=== PATIENT | male | born 1965 | race Caucasian/White ===

== ENCOUNTER 2023-10-28 19:15 | Emergency (ER) | payer BC, SELFPAY ==
[2023-10-28 19:17] VITALS: BP 194/105
[2023-10-28 21:00] VITALS: BP 151/85
--- NOTE | 2023-10-28 21:07 | ED.GENMED ---
History of Present Illness
General
Chief Complaint: Blood Pressure Problem
Source: patient and spouse
Exam Limitations: none
Time Seen by Provider: 10/28/23 20:44
Travel History
Have you had any contact with someone who has COVID-19?: No
Do you have any symptoms of coronavirus? Fever > 100 degrees, chills, cough, shortness of breath, sore throat, loss of taste or smell, muscle aches, or headache?: No
History of Present Illness
History of Present Illness:
58-year-old male has noted flushing to his face for months. However the last week plus he has seemed worse at times feels off vaguely. Has been checking his blood pressure over the last week and has been in the 150s over 90s elevating up to the
184/104 this evening. Some vague minimal chest tightness earlier. No shearing pain no back pain no arm pain. No shortness of breath or pleuritic pain. Patient question whether he had a carcinoid syndrome
Past History
Past History
ED Past Medical History: None
ED Past Surgical History: Appendectomy and Orthopedic
Social History
Tobacco: Non-smoker
Alcohol: Occasional
Personal:
Living: with family
Employment: Employed
Family History
Family History: CAD
Review of Systems
Review of Systems
All Other Systems: Not applicable
Constitutional: Denies fever or weight loss
Respiratory: Reports no symptoms
Cardiac: Denies syncope
ABD/GI: Reports no symptoms
Phy Exam
Physical Exam
Physical Exam:
GENERAL: Alert and oriented in no apparent distress. Blood pressure 151/85 in the left arm. 156/85 in the right arm.
EYE: Orbits normal.
NECK: Supple, no thyroid palpable
ENT: Pharynx without erythema
CARDIAC: Regular rate and rhythm without any obvious murmurs.
LUNGS: Clear breath sounds,normal
ABDOMEN: Soft, without focal tenderness or distention
NEUROLOGICAL: Alert and oriented , grossly non-focal
SKIN: Warm and dry, no rash or lesion, no discoloration, skin intact.
MUSCULOSKELETAL: No edema,no deformity.Good color
PSYCH: Normal and appropriate interaction.
Course
Orders/Labs/Results
Orders:
Orders
10/28/23 19:21
EKG [Electrocardiogram (*1)] Urgent
Reason for Study: Chest Pain
EKG- Treatment ONCE
10/28/23 20:43
IV Insert/Care/Rem.- Treatment PRN
Pulse Ox/cont/shift [RESP] Stat
Quantity: 1
10/28/23 20:44
Cardiac Monitoring- Treatment ONCE
10/28/23 20:54
CXR2 [CR Chest - 2 Views ] Urgent
Comment:
Reason For Exam: cp/htn
10/28/23 21:05
Basic Metabolic Panel Urgent
Complete Blood Count/With Diff Urgent
D-Dimer Urgent
TSH Reflex To Free T4 Urgent
Troponin I Urgent
10/28/23 22:22
Urinalysis Reflex To Culture Urgent
Abnormal Lab Results
10/28/23
21:05
RBC 4.56 L 10^6/uL
(4.70-6.10)
Abs Immat Gran (auto) 0.1 H 10^3/uL
(0-0.05)
Absolute Monos (auto) 1.2 H 10^3/uL
(0.1-0.6)
Immature Gran % 0.8 H %
(0-0.5)
Lymphocytes % 19.6 L %
(20.5-51.1)
Monocytes % 13.6 H %
(1.7-9.3)
BUN 22 H mg/dl
(9-20)
Glucose 114 H mg/dl
(70-99)
10/28/23 21:05
10/28/23 21:05
Vital Signs
Initial and Last Documented VS:
Initial Vital Signs
Temp Pulse Resp BP Pulse Ox
98.3 F 86 18 194/105 98
10/28/23 19:17 10/28/23 19:17 10/28/23 19:17 10/28/23 19:17 10/28/23 19:17
Last Documented Vital Signs
Temp Pulse Resp BP Pulse Ox
98.3 F 75 20 136/80 96
10/28/23 19:17 10/28/23 22:15 10/28/23 22:15 10/28/23 22:00 10/28/23 22:15
*Critical Care Note
Total Time (30-74mins, 75-104mins- exclusive of procedures): Not Applicable
Update Note
Update Note:
Patient has remained medically stable and nontoxic. Not describing angina. Symptoms are mainly facial flushing and intermittent blood pressure elevations. However here her blood pressures have been very stable last 1 136/80. Equal in both arms.
No shearing chest pain no upper back pain no shortness of breath currently appears asymptomatic and nontoxic. No indication for for starting blood pressure management currently. Will follow-up with his primary physician
ED Attending Note
-
Portions of this chart may have been created with voice recognition software.� Occasional wrong word or��sound alike� substitutions may have occurred due to the inherent limitations of voice recognition software.
Discharge Plan
Departure
Patient Disposition: Home (Routine Discharge)
Date of Disposition: 10/28/23
Time of Disposition: 22:23
Patient with high blood pressure during this ER visit?: Yes
Discharge Problem:
Elevated blood pressure, Facial flushing, Brief chest pain
Instructions: High Blood Pressure (DC), Chest Pain PCP Follow Up, BLOOD PRESSURE
Referrals:
Bhavesh Weinberg MD [Family Provider] -
Interventions
Interventions:
*Risk Screen - Suicide Last Done: 10/28/23 19:17
*General Assessment Last Done: 10/28/23 19:17
*Neglect/Abuse Screening Last Done: 10/28/23 19:17
ED- Cardiac Assessment Last Done: 10/28/23 21:08
ED- Neurological Assessment Last Done: 10/28/23 21:08
ED- Pulmonary Assessment Last Done: 10/28/23 21:08
[2023-10-28 21:17] LABS: % Basophils 0.7 % (0-2); % Eosinophils 3.1 % (0-6); % Immature Granulocytes 0.8 % (0-0.5); % Lymphocytes 19.6 % (20.5-51.1); % Monocytes 13.6 % (1.7-9.3); % Neutrophils 62.2 % (42.2-75.2); Absolute Basophils 0.1 10^3/uL (0-0.2); Absolute Eosinophils 0.3 10^3/uL (0-0.7); Absolute Immature Granulocytes 0.1 10^3/uL (0-0.05); Absolute Lymphocytes 1.8 10^3/uL (1.2-3.4); Absolute Monocytes 1.2 10^3/uL (0.1-0.6); Absolute Neutrophils 5.6 10^3/uL (1.4-6.5); Hematocrit 39.1 % (39.0-52.0); Hemoglobin 13.8 g/dL (13.0-18.0); Mean Corp Hgb Conc. 35.3 g/dL (33.0-37.0); Mean Corpuscular Hgb 30.3 pg (27.0-31.0); Mean Corpuscular Volume 85.7 fL (80.0-94.0); Mean Platelet Volume 9.4 fL (7.4-10.4); Nucleated Red Blood Cells % 0 % (-); Platelet Count 259 10^3/uL (130-400); Red Blood Cell Count 4.56 10^6/uL (4.70-6.10); White Blood Cell Count 8.9 10^3/uL (4.8-10.8)
[2023-10-28 21:25] LABS: D-Dimer 0.36 ug/mlFEU (0.00-0.50)
[2023-10-28 21:26] LABS: Blood Urea Nitrogen 22 mg/dl (9-20); Calcium 9.2 mg/dl (8.4-10.2); Carbon Dioxide 23 mmol/L (22-30); Chloride 102 mmol/L (98-107); Glucose 114 mg/dl (70-99); Potassium 3.8 mmol/L (3.5-5.1); Sodium 135 mmol/L (135-145); eGFR > 60.00
[2023-10-28 21:38] LABS: Troponin I < 0.012 ng/ml
[2023-10-28 21:52] VITALS: BP 139/82
[2023-10-28 21:57] LABS: TSH Reflex To Free T4 4.06 uIU/ml (0.47-4.68)
[2023-10-28 22:00] VITALS: BP 136/80
[2023-10-28 22:09] VITALS: BMI 25.9
[2023-10-28 22:41] LABS: Urine Albumin Negative (Neg - Trace); Urine Bilirubin Negative (Negative); Urine Character Clear (Clear); Urine Color Yellow; Urine Glucose Negative (Negative); Urine Ketone Negative (Negative); Urine Leukocyte Negative (Negative); Urine Nitrite Negative (Negative); Urine Occult Blood Negative (Negative); Urine Specific Gravity 1.015 (<1.030); Urine Urobilinogen Negative (Neg - 1+)
== END 2023-10-28 22:46 | disposition home or self-care (01) ==
LOC: EMR 19:15
PROVIDERS: EMERGENCY PHYSICIAN Emergency Medicine; FAMILY PHYSICIAN Internal Medicine
DX: R07.9 Chest pain, unspecified (principal); R07.89 Other chest pain; R23.2 Flushing; R03.0 Elevated blood-pressure reading, without diagnosis of hypertension
CPT/HCPCS: 99285; 71046; 80048; 81003; 84443; 84484; 85025; 85379; 93005

== ENCOUNTER → 2023-12-09 10:51 | Outpatient (REF) | payer SELFPAY | LOC: HWRAD 10:51 | PROVIDERS: ATTENDING PHYSICIAN Internal Medicine Cardiovascular Disease; FAMILY PHYSICIAN Internal Medicine | DX: E78.2 Mixed hyperlipidemia (principal) | CPT/HCPCS: 75571 ==

== ENCOUNTER → 2023-12-13 07:17 | Outpatient (REF) | payer BC, SELFPAY | LOC: DHCBC/DCA 07:17 | PROVIDERS: ATTENDING PHYSICIAN Internal Medicine Cardiovascular Disease; FAMILY PHYSICIAN Internal Medicine | DX: R07.9 Chest pain, unspecified (principal) | CPT/HCPCS: 78452; 93017; A9500 ==

== ENCOUNTER → 2024-01-07 07:19 | Outpatient (REF) | payer BC, SELFPAY | LOC: RCS 07:19 | PROVIDERS: ATTENDING PHYSICIAN Internal Medicine Cardiovascular Disease; FAMILY PHYSICIAN Internal Medicine | DX: I51.7 Cardiomegaly (principal) | CPT/HCPCS: 93306 ==

== ENCOUNTER → 2024-02-08 10:30 | Outpatient (REF) | payer BC, SELFPAY | LOC: RAD 10:30 | PROVIDERS: ATTENDING PHYSICIAN Internal Medicine Nephrology; FAMILY PHYSICIAN Internal Medicine | DX: I10 Essential (primary) hypertension (principal) | CPT/HCPCS: 76770 ==

== ENCOUNTER → 2024-02-15 10:50 | Outpatient (REF) | payer BC, SELFPAY | LOC: HWRAD 10:50 | PROVIDERS: ATTENDING PHYSICIAN Internal Medicine | DX: R10.12 Left upper quadrant pain (principal) | CPT/HCPCS: 76700 ==

== ENCOUNTER → 2024-04-17 10:36 | Outpatient (REF) | payer BC, SELFPAY | LOC: RAD 10:36 | PROVIDERS: ATTENDING PHYSICIAN Nurse Practitioner Family; FAMILY PHYSICIAN Internal Medicine | DX: R19.5 Other fecal abnormalities (principal) | CPT/HCPCS: 74018 ==

== ENCOUNTER 2025-06-14 06:22 | Day surgery (SDC) | payer BC, SELFPAY | END 2025-06-14 12:15 | disposition home or self-care (01) | LOC: GI 06:22 | PROVIDERS: ATTENDING PHYSICIAN Specialist | DX: Z12.11 Encounter for screening for malignant neoplasm of colon (principal); D12.3 Benign neoplasm of transverse colon; K63.5 Polyp of colon; K57.30 Diverticulosis of large intestine without perforation or abscess without bleeding; K64.4 Residual hemorrhoidal skin tags; Z86.0101 Personal history of adenomatous and serrated colon polyps | CPT/HCPCS: 45380; 88305 ==